=== PATIENT | male | born 1980 | race Two or more races ===

== ENCOUNTER 2023-06-27 04:11 | Emergency (ER) | payer OTHER ==
[~2023-06-27] VITALS: Ht 182.9 cm; Wt 90.7 kg
[2023-06-27 04:40] VITALS: PULSE 144; RESP 14; O2SAT 95
[2023-06-27] MEDS: ADENOSINE 6 MG/2 ML INJ IV ONE (04:44)
[2023-06-27 05:30] LABS: Basophils # (auto) 0.1 10 ^3/uL (0-0.2); Basophils % (auto) 0.9 % (0.0-2.0); Eosinophils # (auto) 0.1 10 ^3/uL (0-0.8); Hematocrit 48.9 % (41.0-53.0); Hemoglobin 16.7 g/dL (13.5-17.5); Lymphocytes % (auto) 33.4 % (10.0-50.0); Mean Corpuscular Hemoglobin 30.3 pg (28.0-32.0); Mean Corpuscular Hgb Conc. 34.2 g/dL (32.0-36.0); Mean Corpuscular Volume 88.7 fL (80.0-100.0); Monocytes # (auto) 0.5 10 ^3/uL (0-1.3); Monocytes % (auto) 8.6 % (0.0-12.0); Neutrophils # (auto) 3.3 10 ^3/uL (1.6-8.6); Neutrophils % (auto) 55.1 % (37.0-80.0); Nucleated Red Blood Cells % 0.1 %; Red Blood Cells 5.51 10^6/uL (4.5-5.90); Red Cell Distribution Width 14.1 % (11.8-14.3)
[2023-06-27 05:35] LABS: Chloride 105 mmol/L (98-107); Potassium 3.7 mmol/L (3.5-5.1); Sodium 140 mmol/L (136-145)
[2023-06-27 05:36] LABS: Anion Gap 10 (5-15); Carbon Dioxide 25 mmol/L (20-30)
[2023-06-27 05:37] LABS: Calcium 9.5 mg/dL (8.7-10.4)
[2023-06-27 05:39] LABS: Amphetamine Screen, Urine Neg (NEGATIVE); Barbiturate Scree,Urine Neg (NEGATIVE); Benzodiazephine Screen, Urine Neg (NEGATIVE); Cocaine Screen, Urine Neg (NEGATIVE); Opiate Scree,Urine Neg (NEGATIVE); Phencyclidine Screen, Urine Neg (NEGATIVE)
[2023-06-27 05:40] LABS: Cannabinoid Screen, Urine Neg (NEGATIVE)
[2023-06-27 05:41] LABS: Glucose 117 mg/dL (74-106)
[2023-06-27 05:42] LABS: BUN/Creatinine Ratio 13.1 (10.0-20.0); Blood Urea Nitrogen 11 mg/dL (9-23)
[2023-06-27] MEDS: LABETALOL HCL 5 MG/ML 4ML SYRINGE IV ONE (05:53)
[2023-06-27] MEDS ORDERED: METO25TA93 PO (05:56)
[2023-06-27 06:46] VITALS: BP 127/85; PULSE 98; RESP 16; O2SAT 97
== END 2023-06-27 06:47 | disposition home or self-care (01) ==
LOC: ER 04:11 → EDBD 04:11 → ER 06:47
DX: I47.10 Supraventricular tachycardia, unspecified (principal); I10 Essential (primary) hypertension
CPT/HCPCS: 36415; 71045; 80048; 80307; 83880; 84443; 84484; 85025; 93005; 96374; 99285; J0153; J3490